=== PATIENT | male | born 1980 | race Two or more races ===

== ENCOUNTER 2019-11-09 19:22 | Emergency (ER) | payer OTHER ==
[~2019-11-09] VITALS: Ht 175.3 cm; Wt 90.7 kg
--- NOTE | 2019-11-09 19:33 | NUR ---
PT AAOX4. BIBS FOR EVALUATION OF THE R INDEX FINGER LACERATION S/P CUT BY A PIECE OF COKE CLASS. VSS. NO ACUTE DISTRESS NOTED. WILL CLEAN WOUND, AND MONITOR.
[2019-11-09] MEDS ORDERED: TDAP [DIPH/PERTUSSIS/TET] 0.5 ML VIAL IM ONE ×2 (19:35→20:00)
--- NOTE | 2019-11-09 19:40 | NUR ---
TDAP GIVEN, XRAY AT BEDSIDE.
--- NOTE | 2019-11-09 19:47 | NUR ---
EMT AT BEDSIDE FOR WOUND CARE
[2019-11-09 21:06] VITALS: BP 122/78
--- NOTE | 2019-11-09 21:06 | NUR ---
Patient discharged to home in stable condition. Written and verbal after care instructions given. Patient verbalizes understanding of instruction. Pt ambulated with steady gait.
== END 2019-11-09 21:07 | disposition home or self-care (01) ==
LOC: ER 19:24
DX: S61.210A Laceration without foreign body of right index finger without damage to nail, initial encounter (principal); W26.8XXA Contact with other sharp object(s), not elsewhere classified, initial encounter; Y93.89 Activity, other specified; Y92.89 Other specified places as the place of occurrence of the external cause; Y99.8 Other external cause status
CPT/HCPCS: 73140-TC; 90715

== ENCOUNTER 2019-12-16 20:03 | Emergency (ER) | payer OTHER ==
[~2019-12-16] VITALS: Ht 175.3 cm; Wt 90.7 kg
--- NOTE | 2019-12-16 20:16 | NUR ---
PATIENT CAME TO ER BIB FRIEND TO BED 4 C/O RIGHT SHOULDER RADIATING TO RIGHT LOWER EXTREMITY. PATIENT STATES THAT HE ROTATED AT HIS WAIST INCORRECTLY AND HAD SHOOTING PAIN FROM HIS RIGHT SHOULDER TO THE RIGHT LOWER EXTREMITY. HX OF HERNIATED DISC. 9/10 THROBBING PAIN AT LOWER BACK. AAOX4. NO SOB. BREATHING EVENLY AND UNLABORED ON ROOM AIR. CONNECTED TO MONITOR.
--- NOTE | 2019-12-16 22:13 | NUR ---
SEEN AND EXAMINED BY
[2019-12-16] MEDS ORDERED: LORAZEPAM 1 MG TABLET ONE (22:18)
[2019-12-16] MEDS ORDERED: HYDROCODONE/APAP 10/325MG 1 EA TABLET ONE (22:18)
[2019-12-16] MEDS ORDERED: ONDANSETRON 4 MG TAB.RAPDIS ONE (22:18)
--- NOTE | 2019-12-16 22:26 | NUR ---
Patient discharged to home in stable condition. Written and verbal after care instructions given. Patient verbalizes understanding of instruction.
--- NOTE | 2019-12-16 22:27 | NUR ---
PATIENT IS BEING PICKED UP BY FRIEND. PATIENT RECEIVED PRESCIPTIONS AND VERBALIZES UNDERTANDING OF NOT OPERATING BEHIND ANY MACHINERY WHILE TAKING PRESCRIPTIONS. AMBULATORY WITH STEADY GAIT.
[2019-12-16 22:29] VITALS: BP 139/77
[2019-12-16] MEDS ORDERED: HYDROCODONE/APAP 10/325MG 1 EA TABLET PO ONE (22:30)
[2019-12-16] MEDS ORDERED: ONDANSETRON 4 MG TAB.RAPDIS SL ONE (22:30)
[2019-12-16] MEDS ORDERED: LORAZEPAM 1 MG TABLET PO ONE (22:30)
== END 2019-12-16 22:29 | disposition home or self-care (01) ==
LOC: ER 20:07
DX: S29.012A Strain of muscle and tendon of back wall of thorax, initial encounter (principal); M62.830 Muscle spasm of back; Z60.2 Problems related to living alone; W01.0XXA Fall on same level from slipping, tripping and stumbling without subsequent striking against object, initial encounter; Y93.89 Activity, other specified; Y92.89 Other specified places as the place of occurrence of the external cause; Y99.8 Other external cause status
CPT/HCPCS: 99284; Q0162

== ENCOUNTER 2020-06-26 00:43 | Emergency (ER) | payer OTHER ==
[~2020-06-26] VITALS: Ht 175.3 cm; Wt 90.7 kg
[2020-06-26 00:43] VITALS: BP 145/93
[2020-06-26] MEDS ORDERED: LIDOCAINE VISCOUS 2% UD 15 ML UDC ONE (01:10)
[2020-06-26] MEDS ORDERED: MAG HYDROX/AL HYDROX/SIMETH 30 ML UDC ONE (01:10)
[2020-06-26] MEDS ORDERED: LIDOCAINE VISCOUS 2% UD 15 ML UDC MM ONE (01:30)
[2020-06-26] MEDS ORDERED: MAG HYDROX/AL HYDROX/SIMETH 30 ML UDC PO ONE (01:30)
== END 2020-06-26 01:28 | disposition home or self-care (01) ==
LOC: ER 00:44
DX: K21.9 Gastro-esophageal reflux disease without esophagitis (principal); Z60.2 Problems related to living alone